=== PATIENT | female | born 1980 | race Caucasian/White ===

== ENCOUNTER 2016-06-08 11:51 | Emergency (ER) | payer OTHER, BC ==
[2016-06-08 12:21] VITALS: BP 134/79; PULSE 75; TEMP 97.6; BMI 28.3
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
== END 2016-06-08 13:49 | disposition home or self-care (01) ==
LOC: JERFT 11:51
DX: J70.5 Respiratory conditions due to smoke inhalation (principal); X08.8XXA Exposure to other specified smoke, fire and flames, initial encounter; Y93.89 Activity, other specified; Y92.89 Other specified places as the place of occurrence of the external cause; Y99.0 Civilian activity done for income or pay
CPT/HCPCS: 82375; 99281-25

== ENCOUNTER 2017-03-10 07:27 | Emergency (ER) | payer BC, OTHER ==
[2017-03-10 07:36] VITALS: BP 126/80; PULSE 86; TEMP 98.2; BMI 28.3
--- NOTE | 2017-03-10 07:39 | PDOC ---
History of Present Illness - General Chief Complaint: Injury Stated Complaint: RT WRIST INJURY Time Seen by Provider: 03/10/17 07:29 History Source: Patient Exam Limitations: No Limitations - History of Present Illness Initial Comments: 03/10/17 07:34 36 y/o female slipped on stairs this morning, no LOC, complains of right wrist pain. Broke this wrist in the past. n elbow pain or back pain. Has not taken anything for the pain or iced it. Able to move it. Notice swelling and bruising. Timing/Duration: 1/2 hour Severity: mild Past History - Past Medical History Allergies/Adverse Reactions: Allergies Allergy/AdvReac Type Severity Reaction Status Date / Time No Known Allergies Allergy Verified 06/08/16 12:18 Home Medications: Ambulatory Orders NK [No Known Home Medication] 06/08/16 - Suicide/Smoking/Psychosocial Hx Smoking Status: No Smoking History: Never smoked Have you smoked in the past 12 months: No Number of Cigarettes Smoked Daily: 0 Hx Alcohol Use: No Drug/Substance Use Hx: No Substance Use Type: None Hx Substance Use Treatment: No Review of Systems - Review of Systems Able to Perform ROS?: Yes Is the patient limited Mexican proficient: No Constitutional: No: Chills, Fever Respiratory: No: Cough, Shortness of Breath Cardiac (ROS): No: Chest Pain ABD/GI: No: Vomiting Musculoskeletal: No: Back Pain Integumentary: Yes: Bruising Neurological: No: Headache, Dizziness All Other Systems: Reviewed and Negative *Physical Exam - Physical Exam General Appearance: Yes: Nourished, Appropriately Dressed. No: Apparent Distress HEENT: positive: EOMI, DOLORES, Normal ENT Inspection, Normal Voice, Pharynx Normal Neck: positive: Trachea midline, Normal Thyroid, Supple Respiratory/Chest: positive: Lungs Clear, Normal Breath Sounds Cardiovascular: positive: Regular Rhythm, Regular Rate, S1, S2 Vascular Pulses: Femoral (R): 4+, Femoral (L): 4+, Carotid (R): 4+, Carotid (L) : 4+, Dorsalis-Pedis (R): 4+, Doralis-Pedis (L): 4+ Gastrointestinal/Abdominal: positive: Normal Bowel Sounds, Flat. negative: Tender Lymphatic: negative: Adenopathy, Tenderness, Other Musculoskeletal: positive: Normal Inspection. negative: CVA Tenderness Extremity: positive: Normal Capillary Refill, Normal Range of Motion. negative : Normal Inspection (mild swelling and ecchymosis to right wrist, full ROM, pulses 2+/4 b/l in UE, no focal deficits noted) Integumentary: positive: Normal Color, Dry, Warm, Ecchymosis (right lateral wrist with tenderness, no right elbow or hand tenderness noted, full ROM). negative: Erythema Neurologic: positive: hydrostatic tester II-XII NML intact, Fully Oriented, Alert, Normal Mood/ Affect, Normal Response, Motor Strength 08/31 ED Treatment Course - ADDITIONAL ORDERS Additional order review: 03/10/17 07:39 right wrist pain, r/o fracture, will obtain x-ray. 03/10/17 08:29 Ice, Motrin, wrist splint Follow up with Orthopedics If worsen return to ER Pt is in agreement with plan - RADIOLOGY Radiology Studies Ordered: Category Date Time Status WRIST- RIGHT [RAD] Stat Radiology 03/10/17 07:33 Ordered 03/10/17 08:28 right wrist: no fracture seen *DC/Admit/Observation/Transfer Diagnosis at time of Disposition: Contusion of wrist, right Qualifiers: Encounter type: initial encounter Qualified Code(s): S60.211A - Contusion of right wrist, initial encounter - Discharge Dispostion Disposition: HOME Condition at time of disposition: Good Admit: No - Referrals - Patient Instructions Additional Instructions: Ice, Motrin, rest Splint to wrist Follow up with your Orthopedics If worsen return to ER - Post Discharge Activity
== END 2017-03-10 08:42 | disposition home or self-care (01) ==
LOC: FER 07:27
PROC: 2W3CX1Z Immobilization of Right Lower Arm using Splint (ICD-10-PCS; principal; 2017-03-10)
DX: S60.211A Contusion of right wrist, initial encounter (principal); W18.39XA Other fall on same level, initial encounter; Y93.89 Activity, other specified; Y92.9 Unspecified place or not applicable
CPT/HCPCS: 73110-TC-RT; 99281-25

== ENCOUNTER 2017-10-03 07:51 | Emergency (ER) | payer OTHER, BC ==
[2017-10-03 08:01] VITALS: BP 145/75; PULSE 85; TEMP 98.2; BMI 25.0
[2017-10-03] MEDS ORDERED: KETOROLAC TROMETHAMINE 60 MG/2 ML VIAL IM ONE (08:17)
--- NOTE | 2017-10-03 08:17 | PDOC ---
History of Present Illness - General Chief Complaint: Back Pain Stated Complaint: YPD/BACK PAIN Time Seen by Provider: 10/03/17 08:02 History Source: Patient Exam Limitations: No Limitations - History of Present Illness Initial Comments: CHIEF COMPLAINT: 37 y/o afebrile female, [employer], c/o upper back pain since this morning. HISTORY OF PRESENT ILLNESS: The patient went to work and when putting on her weighted vest she felt pain in her upper back. She states it now hurts with movement and when she takes a deep breath. She denies any other trauma, cough, hemoptysis and all other symptoms. Vital signs on arrival are within normal limits. REVIEW OF SYSTEMS: GENITOURINARY: No dysuria, frequency, or change in urination. MUSCULOSKELETAL: +thoracic back pain. No joint or muscle swelling or pain. No neck pain. SKIN: No rash or easy bruising. NEUROLOGIC: No headache, vertigo, loss of consciousness, or loss of sensation. PHYSICAL EXAM: GENERAL: The patient is awake, alert, and fully oriented, in no acute distress. Patient appears uncomfortable with movement of her upper body and with deep breaths. ABDOMEN: Soft, non-distended, non-tender even to deep palpation, no hepatomegaly or splenomegaly, no masses. BACK: Pain with twisting movements of thoracic spine. No midline thoracic spine ttp or step offs. No reproducible thoracic back pain. EXTREMITIES: Normal range of motion, no edema. NEUROLOGICAL: Normal speech, normal gait. CN II-XII grossly intact. Past History - Past Medical History Allergies/Adverse Reactions: Allergies Allergy/AdvReac Type Severity Reaction Status Date / Time No Known Allergies Allergy Verified 10/03/17 07:53 Home Medications: Ambulatory Orders NK [No Known Home Medication] 06/08/16 COPD: No - Suicide/Smoking/Psychosocial Hx Smoking Status: No Smoking History: Never smoked Have you smoked in the past 12 months: No Number of Cigarettes Smoked Daily: 0 Information on smoking cessation initiated: No Hx Alcohol Use: No Drug/Substance Use Hx: No Substance Use Type: None Hx Substance Use Treatment: No *Physical Exam - Vital Signs Last Vital Signs Temp Pulse Resp BP Pulse Ox 98.2 F 85 18 145/75 100 10/03/17 07:54 10/03/17 07:54 10/03/17 07:54 10/03/17 07:54 10/03/17 07:54 Medical Decision Making - Medical Decision Making A/P: 37 y/o afebrile female with most likely thoracic back strained muscle. Plan is as follows: 1. IM toradol 2. CXR patient has an IUD and therefore I will not check prior to NSAIDs or CXR CXR IMPRESSION: No acute pathology. Most likely a muscle strain/costochondritis. Suggested Ibuprofen every 6 hours with food for pain, take deep breaths every hour, stretch muscles multiple times per day and using heating pad for comfort. Instructed her to avoid lifting and provided a work note. Suggested she return to the ER with any worsening or concerning symptoms. The patient verbalizes understanding of all instructions, has no further questions and is awaiting discharge. *DC/Admit/Observation/Transfer Diagnosis at time of Disposition: Muscle strain of chest wall Qualifiers: Encounter type: initial encounter Qualified Code(s): S29.011A - Strain of muscle and tendon of front wall of thorax, initial encounter - Discharge Dispostion Disposition: HOME Condition at time of disposition: Good - Referrals Referrals: Luis Antonio Jensen MD [Primary Care Provider] - - Patient Instructions Printed Discharge Instructions: DI for Costochondritis, DI for Muscle Strain, How To Perform RICE (Rest, Ice, Compress, Elevate) Additional Instructions: Discharge Instructions: -Take 600mg of over the counter Ibuprofen or Motrin every 6 hours with food for pain -Apply heating pad to affected area -Stretch affected area multiple times per day -No heavy lifting until improved -Return to the ER with any worsening or concerning symptoms - Post Discharge Activity Forms/Work/School Notes: Back to Work
[2017-10-03] MEDS ORDERED: KETOROLAC TROMETHAMINE 60 MG/2 ML VIAL ONE (08:20)
== END 2017-10-03 09:00 | disposition home or self-care (01) ==
LOC: JERFT 07:51 → JER 07:51 → JERFT 09:00
PROC: 3E0233Z Introduction of Anti-inflammatory into Muscle, Percutaneous Approach (ICD-10-PCS; principal; 2017-10-03)
DX: S29.011A Strain of muscle and tendon of front wall of thorax, initial encounter (principal); S29.012A Strain of muscle and tendon of back wall of thorax, initial encounter; X50.9XXA Other and unspecified overexertion or strenuous movements or postures, initial encounter; Y93.89 Activity, other specified; Y92.89 Other specified places as the place of occurrence of the external cause; Y99.0 Civilian activity done for income or pay
CPT/HCPCS: 71046-TC-FY; 99281-25

== ENCOUNTER 2020-03-13 16:22 | Emergency (ER) | payer BC, OTHER ==
[2020-03-13 16:37] VITALS: BP 150/98; PULSE 92; TEMP 98.6; BMI 25.7
[2020-03-13] MEDS ORDERED: DEXAMETHASONE SOD PHOSPHATE 4 MG/1 ML VIAL IM ONE (17:02)
[2020-03-13] MEDS ORDERED: DEXAMETHASONE SOD PHOSPHATE 4 MG/1 ML VIAL ONE (17:33)
== END 2020-03-13 17:45 | disposition home or self-care (01) ==
LOC: FER 16:22
PROC: 3E023GC Introduction of Other Therapeutic Substance into Muscle, Percutaneous Approach (ICD-10-PCS; principal; 2020-03-13)
DX: G54.0 Brachial plexus disorders (principal); M54.2 Cervicalgia
CPT/HCPCS: 99284-25

== ENCOUNTER 2021-03-19 16:19 | Emergency (ER) | payer OTHER ==
[2021-03-19 16:34] VITALS: BP 137/70; PULSE 66; TEMP 99; BMI 25.7
[2021-03-19] MEDS ORDERED: NAPROXEN 500 MG TABLET PO ONE (17:24)
[2021-03-19] MEDS ORDERED: NAPROXEN 500 MG TABLET ONE (17:31)
== END 2021-03-19 17:55 | disposition home or self-care (01) ==
LOC: FER 16:19
DX: S89.91XA Unspecified injury of right lower leg, initial encounter (principal); W10.8XXA Fall (on) (from) other stairs and steps, initial encounter
CPT/HCPCS: 73562-TC-RT-FY; 99283-25

== ENCOUNTER 2022-02-12 15:40 | Emergency (ER) | payer BC, OTHER ==
[2022-02-12 15:58] VITALS: BP 110/78; PULSE 76; RESP 18; TEMP 98.6; BMI 22.4
[2022-02-12] MEDS ORDERED: SODIUM CHLORIDE 0.9% 1000 ML INFUS.BAG IV ONE (16:01)
[2022-02-12] MEDS ORDERED: ACETAMINOPHEN 1000 MG/100 ML BAG IVPB ONE (16:02)
[2022-02-12] MEDS ORDERED: ACETAMINOPHEN INJECTION 100 ML IVPB ONE (16:21)
[2022-02-12 16:28] LABS: HEMATOCRIT 39.7 % (32.4-45.2); HEMOGLOBIN 13.7 G/dL (10.7-15.3); MCH 31.2 pg (25.7-33.7); MCHC 34.4 g/dl (32.0-36.0); MEAN CELL VOLUME 90.7 fl (80-96); MEAN PLT VOLUME 8.4 fl (7.5-11.1); PLATELET COUNT 240.1 10^3/uL (134-434); RBC 4.38 10^6/uL (3.60-5.2); RDW 13.6 % (11.6-15.6)
[2022-02-12 16:45] LABS: PLATELET ESTIMATE ADEQUATE
[2022-02-12 16:49] LABS: ALBUMIN 4.3 g/dl (3.4-5.0); BILIRUBIN,TOTAL 0.9 mg/dl (0.2-1); CALCIUM 10.1 mg/dl (8.5-10); CREATININE 0.6 mg/dl (0.55-1.3); TOT PROT 7.2 g/dl (6.4-8.2)
[2022-02-12 17:13] LABS: EPITHELIAL CELLS FEW /hpf
[2022-02-12] MEDS ORDERED: CEFTRIAXONE 1,000 MG in DEXTROSE 5%-WATER - 50 ML IVPB ONE (19:27)
[2022-02-12] MEDS ORDERED: cefTRIAXone SODIUM 1 GM VIAL ONE (19:30)
== END 2022-02-12 20:30 | disposition home or self-care (01) ==
LOC: FER 15:40
PROC: 3E03329 Introduction of Other Anti-infective into Peripheral Vein, Percutaneous Approach (ICD-10-PCS; principal; 2022-02-12)
PROC: 3E0333Z Introduction of Anti-inflammatory into Peripheral Vein, Percutaneous Approach (ICD-10-PCS; 2022-02-12)
DX: N39.0 Urinary tract infection, site not specified (principal)
CPT/HCPCS: 36415; 74176-TC; 80053; 81003; 81015; 84703; 85027; 87086; 87186; 99284-25

== ENCOUNTER 2022-09-10 12:58 | Emergency (ER) | payer BC ==
[2022-09-10 14:10] VITALS: RESP 20; TEMP 98.3; BMI 21.6
[2022-09-10] MEDS ORDERED: SODIUM CHLORIDE 0.9% 500 ML INFUS.BAG IV ONE (14:16)
[2022-09-10 15:07] LABS: HEMATOCRIT 38.4 % (32.4-45.2); MCH 31.2 pg (25.7-33.7); MCHC 33.7 g/dl (32.0-36.0); MEAN CELL VOLUME 92.5 fl (80-96); MEAN PLT VOLUME 9.4 fl (7.5-11.1); PLATELET COUNT 237.9 10^3/uL (134-434); RBC 4.15 10^6/uL (3.60-5.2); RDW 13.8 % (11.6-15.6); WHITE BLOOD COUNT 11.1 10^3/uL (4.0-10.8)
[2022-09-10 15:09] LABS: ALBUMIN 4.1 g/dl (3.4-5.0); ALK PHOS 47 U/L (45-117); ANION GAP 6 MMOL/L (8-16); BILIRUBIN,TOTAL 0.6 mg/dl (0.2-1); CALCIUM 8.9 mg/dl (8.5-10); CHLORIDE 104 mmol/L (98-107); CO2 26 mmol/L (21-32); CREATININE 0.6 mg/dl (0.55-1.3); GLUCOSE,RANDOM 93 mg/dl (74-106); MAGNESIUM 1.9 mg/dL (1.8-2.4); PHOSPHOROUS 3.3 mg/dl (2.5-4.9); POTASSIUM 4.1 mmol/L (3.5-5.1); SGOT/AST 18 U/L (15-37); SGPT/ALT 17 U/L (13-61); SODIUM 136 mmol/L (136-145); TOT PROT 6.8 g/dl (6.4-8.2)
[2022-09-10 15:42] LABS: PLATELET ESTIMATE ADEQUATE
[2022-09-10 16:29] VITALS: BP 120/72; PULSE 64
== END 2022-09-10 17:26 | disposition home or self-care (01) ==
LOC: FER 12:58
DX: R07.89 Other chest pain (principal); R55 Syncope and collapse
CPT/HCPCS: 36415; 71045-TC-FY; 80053; 83735; 84100; 84443; 84484; 84702; 85027; 93005; 99285-25